=== PATIENT | female | born 1970 | race Caucasian/White ===

== ENCOUNTER 2017-03-28 18:26 | Emergency (ER) | payer OTHER ==
[2017-03-28] MEDS ORDERED: NORMAL SALINE 1000 ML 1,000 ML IV ONE (18:50)
--- NOTE | 2017-03-28 18:50 | ER Document Report ---
ED General - General Stated Complaint: RAPID HEART RATE Time Seen by Provider: 03/28/17 18:39 Notes: Patient is a 46-year-old female with past medical history of Vonnie-Parkinson- White syndrome with a prior history of supraventricular tachycardia who presents after having an episode of supraventricular tachycardia was treated with adenosine prior to arrival. Patient went to urgent care with palpitations , was found to be in SVT, EMS was contacted and an adenosine was administered. The patient states that her only symptom was palpitations and she denies any symptoms of chest pain or shortness of breath. She states that this felt exactly the same as prior episodes of SVT she has had in the past. At some my assessment she denies any ongoing symptoms. She is uncertain what triggered today's episode. It did resolve after single dose of adenosine. 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 She denies any stimulant use today. She does note that she is on been under emotional distress secondary to the of her mother recently. TRAVEL OUTSIDE OF THE [place] IN LAST 30 DAYS: No - Related Data Allergies/Adverse Reactions: No Known Allergies Allergy (Verified 03/28/17 18:53) Past Medical History - General Information source: Patient - Social History Smoking Status: Never Smoker Frequency of alcohol use: None Drug Abuse: None Lives with: Spouse/Significant other Family History: Reviewed & Not Pertinent Review of Systems - Review of Systems Notes: Constitutional: Negative for fever. HENT: Negative for sore throat. Eyes: Negative for visual changes. Cardiovascular: Negative for chest pain. Respiratory: Negative for shortness of breath. Gastrointestinal: Negative for abdominal pain, vomiting or diarrhea. Genitourinary: Negative for dysuria. Musculoskeletal: Negative for back pain. Skin: Negative for rash. Neurological: Negative for headaches, weakness or numbness. 10 point ROS negative except as marked above and in HPI. Physical Exam - Vital signs Vitals: Pulse Ox 98 03/28/17 18:32 Interpretation: Tachycardic Notes: PHYSICAL EXAMINATION: GENERAL: Well-appearing, well-nourished and in no acute distress. HEAD: Atraumatic, normocephalic. EYES: Pupils equal round and reactive to light, extraocular movements intact, sclera anicteric, conjunctiva are normal. ENT: nares patent, oropharynx clear without exudates. Moist mucous membranes. NECK: Normal range of motion, supple without lymphadenopathy LUNGS: Breath sounds clear to auscultation bilaterally and equal. No wheezes rales or rhonchi. HEART: Regular tachycardia without murmurs ABDOMEN: Soft, nontender, normoactive bowel sounds. No guarding, no rebound. No masses appreciated. EXTREMITIES: Normal range of motion, no pitting or edema. No cyanosis. NEUROLOGICAL: No focal neurological deficits. Moves all extremities spontaneously and on command. PSYCH: Normal mood, normal affect. SKIN: Warm, Dry, normal turgor, no rashes or lesions noted. Course - Re-evaluation Re-evalutation: 03/28/17 18:49 Patient presents after having an episode of SVT cardioverted chemically in the field by EMS using adenosine. Patient does have Aqete-Kkkeowrmd-Lhihd syndrome and thankfully did not have any complication as a result of his AV nikhil blocking agent being given. She arrives and continues to have a sinus tachycardia, rates ranging between 128 and 132 bpm at the time of my assessment. She denies any additional symptoms beyond palpitations. No indication for an ischemic workup for a pulmonary embolus workup given her clinical history. She does have one prior episode in the past. Patient admits to very poor self-care the past 1 week has her mother recently . Will begin with IV fluids, continue on continuous telemetry and reassess the patient. 03/28/17 20:52 Patient's heart rate has significantly improved down to 106 bpm. Her heart rate does dramatically rise when any medical provider walks into the room comes down back into the low 100s. EKG does show Lfyyj-Ymyywwpri-Tnqfs syndrome. I have encouraged the patient to follow closely with cardiology. Electrolytes unremarkable. She continues to deny any symptoms at this time. At this time will discharge with return precautions and follow-up recommendations. Verbal discharge instructions given a the bedside and opportunity for questions given. Medication warnings reviewed. Patient is in agreement with this plan and has verbalized understanding of return precautions and the need for primary care follow-up in the next 24-72 hours. - Vital Signs Vital signs: Temp Pulse Resp BP Pulse Ox 98.5 F 12 128/77 H 96 03/28/17 19:07 03/28/17 21:01 03/28/17 21:01 03/28/17 21:01 - Laboratory Result Diagrams: 03/28/17 19:40 - EKG Interpretation by Me Additional EKG results interpreted by me: 03/28/17 20:54 Sinus tachycardia. Rate 132. Vuamo-Byzwljavm-Xrhlx syndrome pattern is present. QTC is 486. Discharge - Discharge Clinical Impression: Hszuw-Cuamubnpm-Jcwhx syndrome, Supraventricular tachycardia Condition: Good Disposition: HOME, SELF-CARE Additional Instructions: Please follow-up with cardiology at your earliest ability. Please return if you develop recurrence of your palpitations, lightheadedness, pass out, develop shortness of breath or chest pain, or of any other symptoms that are worrisome to you. Referrals: CAMERON JOHNSON PA-C [Primary Care Provider] - Follow up as needed JOSHUA COOL MD [ACTIVE STAFF] - Follow up as needed
[2017-03-28] MEDS ORDERED: LORAZEPAM 1 MG TABLET PO ONE (19:27)
[2017-03-28 20:24] LABS: ANION GAP 7 (5-19); BLOOD UREA NITROGEN 10 mg/dL (7-20); CALCIUM 8.8 mg/dL (8.4-10.2); CARBON DIOXIDE 28 mmol/L (22-30); CHLORIDE 107 mmol/L (98-107); GLUCOSE 104 mg/dL (75-110); POTASSIUM 3.7 mmol/L (3.6-5.0); SODIUM 141.6 mmol/L (137-145)
[2017-03-28 21:22] VITALS: BP 128/77
--- NOTE | 2017-03-29 09:41 | EKG REPORT ---
SEVERITY:- ABNORMAL ECG - SINUS TACHYCARDIA NONSPECIFIC INTRAVENTRICULAR CONDUCTION DELAY ST DEPRESSION, CONSIDER ISCHEMIA, LAT LEADS : Confirmed by: Rosalina Mueller 29-Mar-2017 09:40:43
== END 2017-03-28 21:22 | disposition home or self-care (01) ==
LOC: ER 18:26
DX: I45.6 Pre-excitation syndrome (principal); I47.1 Supraventricular tachycardia
CPT/HCPCS: 93005; 99285; 96360; 36415; 84703; 80048; 93010; J7030

== ENCOUNTER → 2017-04-23 | Outpatient (CLI) | payer OTHER ==
--- NOTE | 2017-04-23 16:22 | WOMENS IMAGING REPORT ---
EXAM DESCRIPTION: BILAT SCREENING MAMMO W/CAD COMPLETED DATE/TIME: 04/23/2017 8:23 am REASON FOR STUDY: ROUTINE SCREENING; Z12.31 Z12.31 ENCNTR SCREEN MAMMOGRAM FOR MALIGNANT NEOPLASM O F MARCOS COMPARISON: 2012, 2015 TECHNIQUE: Standard craniocaudal and mediolateral oblique views of each breast recorded using sonarDesigna l acquisition. LIMITATIONS: None. FINDINGS: No masses, calcifications or architectural distortion. No areas of suspicion. Read with the assistance of CAD. .[facility] - R2 Cenova Version 1.3 .[facility] Imaging - R2 Cenova Version 1.3 .[facility] Imaging - R2 Cenova Version 2.4 .[facility] - R2 Cenova Version 2.4 .[facility] - R2 American Sign Language Teacher Version 9.2 IMPRESSION: NORMAL MAMMOGRAM. BIRADS 1. BREAST DENSITY: b. There are scattered areas of fibroglandular density. BIRAD: 1 NEGATIVE RECOMMENDATION: ROUTINE SCREENING COMMENT: The patient has been notified of the results by letter per SA requirements. Additional no tification policies are in place for contacting patient with suspicious or incomplete findings. Quality ID #[id number]: The [employer] recommends an annual screening mammogram for women aged 40 years or over. This facility utilizes a reminder system to ensure that all patients receive reminder letters, and/or direct phone calls for appointments. This includes reminders for routine scr eening mammograms, diagnostic mammograms, or other Breast Imaging Interventions when appropriate. Th is patient will be placed in the appropriate reminder system. The [employer] (ACR) has developed recommendations for screening MRI of the breast s in certain patient populations, to be used in conjunction with mammography. Breast MRI surveillanc e may be appropriate for women with more than 20% lifetime risk of developing breast cancer as deter mined by genetic testing, significant family history of the disease, or history of mantle radiation f or Hodgkins Disease. ACR Practice Guidelines 2008. TECHNICAL DOCUMENTATION: FINDING NUMBER: (1) ASSESSMENT: (1) JOB ID: [id number] [employer]- All Rights Reserved
== END ==
LOC: WI 09:10
PROVIDERS: ATTEND Physician Assistant
DX: Z12.31 Encounter for screening mammogram for malignant neoplasm of breast (principal)
CPT/HCPCS: 77067

== ENCOUNTER 2017-11-07 09:55 | Emergency (ER) | payer OTHER ==
[2017-11-07] MEDS ORDERED: NORMAL SALINE 1000 ML 1,000 ML IV PRN (10:17)
[2017-11-07] MEDS ORDERED: METHYLPREDNISOLONE INJ 125 MG/2 ML SDV IV ONE (10:18)
[2017-11-07] MEDS ORDERED: DIPHENHYDRAMINE HCL 50 MG/ML VIAL IV ONE (10:18)
--- NOTE | 2017-11-07 10:20 | ER Document Report ---
ED Medical Screen (RME) - General Chief Complaint: Allergic Reaction Stated Complaint: POSSIBLE ALLERGIC REACTION Time Seen by Provider: 11/07/17 10:16 Notes: 47 years old female presents today with diffuse urticarial rash throughout the whole body which is erythematous. Started about a few days ago and was treated with Solu-Medrol and tapering dose of prednisone which is day 2 for heart today. But the rash has not improved at all the plaque to be getting worse spreading throughout the whole body including including swelling of the lower lips. Therefore concerned and came to the ED. She was on Macrobid for UTI, the last dose was 1 week ago. A few days ago she was outside in [employer] constitution party. On examination angioedema, urticarial type of rash was noted. Palmar and plantar erythema to0 noted. TRAVEL OUTSIDE OF THE [place] IN LAST 30 DAYS: No - Related Data Allergies/Adverse Reactions: amoxicillin Allergy (Verified 11/07/17 10:13) Past Medical History Renal/ Medical History: Denies: Hx Peritoneal Dialysis Physical Exam - Vital signs Vitals: Temp Pulse Resp BP Pulse Ox 98.2 F 111 H 18 145/87 H 97 11/07/17 09:59 11/07/17 09:59 11/07/17 09:59 11/07/17 09:59 11/07/17 09:59 Course - Vital Signs Vital signs: Temp Pulse Resp BP Pulse Ox 98.2 F 111 H 18 145/87 H 97 11/07/17 09:59 11/07/17 09:59 11/07/17 09:59 11/07/17 09:59 11/07/17 09:59 Doctor's Discharge - Discharge Referrals: CAMERON JOHNSON PA-C [Primary Care Provider] - Follow up as needed
--- NOTE | 2017-11-07 10:32 | ER Document Report ---
ED General - General Chief Complaint: Allergic Reaction Stated Complaint: POSSIBLE ALLERGIC REACTION Time Seen by Provider: 11/07/17 10:16 Notes: Patient is a 47-year-old female presents to the emergency department for chief complaint of hives. The patient states that she first noticed these on Saturday and they have become progressively worse since then. On Saturday this week she did go to an urgent care, and was given IV steroid, discharged on prednisone and Zantac, however her symptoms progressed since then, she did have some resolution of some of her hives, but then they migrated to other areas. They are mainly noted in the ankles, backs of her knees, and other flexor surfaces of her extremities and her neck. Today she did note that her bottom lip was swelling, which prompted her to come to the emergency department, denies feeling any sensation of throat swelling, wheezing, nausea or vomiting. She does not recall any new exposures to medications, the most recent was an antibiotic 10 days ago, and she had no problems at that time. The only thing she can recall is that she used a new dryer sheet for her close, she denies any new foods, or prior allergies to foods. She does have an allergy to amoxicillin , but has not been exposed to that medication. She denies any other chronic medical conditions. TRAVEL OUTSIDE OF THE [place] IN LAST 30 DAYS: No - Related Data Allergies/Adverse Reactions: amoxicillin Allergy (Verified 11/07/17 10:13) Past Medical History - Social History Smoking Status: Never Smoker Frequency of alcohol use: None Drug Abuse: None Family History: Reviewed & Not Pertinent Patient has suicidal ideation: No Patient has homicidal ideation: No - Medical History Notes: Denies chronic medical conditions Renal/ Medical History: Denies: Hx Peritoneal Dialysis Review of Systems - Review of Systems Notes: REVIEW OF SYSTEMS: CONSTITUTIONAL : Denies fever, chills, or sweats. Denies recent illness. EENT: Positive for lip swelling. Denies eye, ear, throat, or mouth pain or symptoms. Denies nasal or sinus congestion. CARDIOVASCULAR: Denies chest pain. RESPIRATORY: Denies cough, cold, or chest congestion. Denies shortness of breath, difficulty breathing, or wheezing. GASTROINTESTINAL: Denies abdominal pain. Denies nausea, vomiting, or diarrhea. Denies constipation. Last BM: GENITOURINARY: Denies difficulty urinating, painful urination, burning, frequency, or blood in urine. FEMALE GENITOURINARY: Denies vaginal bleeding, abnormal or irregular periods. LMP: MUSCULOSKELETAL: Denies neck or back pain or joint pain or swelling. SKIN: Positive for rash and hives HEMATOLOGIC : Denies easy bruising or bleeding. LYMPHATIC: Denies swollen, enlarged glands. NEUROLOGICAL: Denies altered mental status or loss of consciousness. Denies headache. Denies weakness or paralysis or loss of use of either side. Denies problems with gait or speech. Denies sensory or motor loss. PSYCHIATRIC: Denies anxiety or stress or depression. ALL OTHER SYSTEMS REVIEWED AND NEGATIVE. Physical Exam - Vital signs Vitals: Temp Pulse Resp BP Pulse Ox 98.2 F 111 H 18 145/87 H 97 11/07/17 09:59 11/07/17 09:59 11/07/17 09:59 11/07/17 09:59 11/07/17 09:59 - Notes Notes: PHYSICAL EXAMINATION: GENERAL: Well-appearing, well-nourished and in no acute distress. HEAD: Atraumatic, normocephalic. EYES: Pupils equal round and reactive to light, extraocular movements intact, sclera anicteric, conjunctiva are normal. ENT: nares patent, oropharynx clear without exudates. Moist mucous membranes. Uvula midline, nonedematous, tongue is not edematous, there is slight lower lip edema noted. NECK: Normal range of motion, supple without lymphadenopathy LUNGS: Breath sounds clear to auscultation bilaterally and equal. No wheezes rales or rhonchi. HEART: Regular rate and rhythm without murmurs ABDOMEN: Soft, nontender, normoactive bowel sounds. No guarding, no rebound. No masses appreciated. EXTREMITIES: Normal range of motion, no pitting or edema. No cyanosis. NEUROLOGICAL: No focal neurological deficits. Moves all extremities spontaneously and on command. PSYCH: Normal mood, normal affect. SKIN: Noted are multiple areas of urticaria, over the patient's abdomen, neck, ankles, and a large area of erythema and urticaria over the patient's left antecubital fossa, mildly tender to palpation. Otherwise warm, Dry, normal turgor, Course - Re-evaluation Re-evalutation: 11/07/17 10:31 Patient seen and examined, vital signs reviewed. Patient noted to have multiple areas of urticaria, uvula was midline, nonedematous, no wheezing, or respiratory distress, patient be treated with IV corticosteroids, diphenhydramine, and given IM epinephrine, will monitor in the emergency department for improvement, if patient does not have any worsening lip swelling , or tongue swelling, patient will be discharged home. Patient agreeable to this plan of care. Patient's blood work was reviewed, demonstrated mild leukocytosis, patient has been on corticosteroids, and likely as a result, no evidence of infection at this time. 11/07/17 12:51 Patient reevaluated, was much improved, lip swelling decreased, her erythema and urticaria are much improved, this point I feel comfortable discharging the patient to home, after significant observation time, she is advised to continue taking Benadryl 50 mg 3 times a day, I will prescribe her with a different prescription for prednisone over a long taper, she is also advised to continue taking Zantac twice daily, she is given reasons to return to the emergency department including but not limited to shortness of breath, chest pain, wheezing, worsening rash, or sloughing of the skin of the palms or soles or any oral lesions. Patient agreeable to plan of care. - Vital Signs Vital signs: Temp Pulse Resp BP Pulse Ox 98.1 F 111 H 10 L 134/58 H 97 11/07/17 13:23 11/07/17 09:59 11/07/17 13:23 11/07/17 13:23 11/07/17 13:23 - Laboratory Result Diagrams: 11/07/17 10:45 11/07/17 10:45 Laboratory results interpreted by me: 11/07/17 11/07/17 10:45 10:45 WBC 15.3 H Absolute Neutrophils 11.9 H Potassium 3.2 L C-Reactive Protein 24.7 H Critical Care Note - Critical Care Note Total time excluding time spent on procedures (mins): 38 Comments: Critical care time 30 minutes exclusive from separate billable procedures for the patient presenting with angioedema, requiring IM epinephrine, and close cardiac monitoring, with complex medical decision making, and high potential for clinical deterioration, from a respiratory, and cardiovascular standpoint. Discharge - Discharge Clinical Impression: Urticaria Angioedema Qualifiers: Encounter type: initial encounter Qualified Code(s): T78.3XXA - Angioneurotic edema, initial encounter Condition: Good Disposition: HOME, SELF-CARE Instructions: Acute Allergic Reaction ([facility]) Additional Instructions: Please take Benadryl 50 mg 3 times daily, take the prednisone (steroid) as instructed, continue to take the Zantac as prescribed twice daily for at least 7 more days, please monitor for difficulty breathing, wheezing, chest pain or abdominal pain, and also look for blistering on your hands or feet, if you develop these symptoms please return to the emergency department immediately. Prescriptions: Prednisone See Protocol PO DAILY #60 tablet Prednisone 10 mg PO DAILY #60 tablet Referrals: CAMERON JOHNSON PA-C [Primary Care Provider] - Follow up in 3-5 days
[2017-11-07] MEDS ORDERED: EPINEPHRINE INJ/PF 1 MG/1 ML AMPULE IM ONE (10:43)
[2017-11-07 10:55] LABS: ABSOLUTE EOSINOPHILS # (AUTO) 0.1 10^3/uL (0.0-0.6); ABSOLUTE LYMPHOCYTES (AUTO) 2.2 10^3/uL (0.5-4.7); ABSOLUTE MONOCYTES (AUTO) 1.1 10^3/uL (0.1-1.4); ABSOLUTE NEUT (AUTO) 11.9 10^3/uL (1.7-8.2); BASOPHILS % (AUTO) 0.2 % (0-2); EOSINOPHILS % (AUTO) 0.6 % (0-6); HEMATOCRIT 41.3 % (36.0-47.0); HEMOGLOBIN 13.8 g/dL (12.0-15.5); LYMPHOCYTES % (AUTO) 14.7 % (13-45); MEAN CORPUSCULAR HEMOGLOBIN 27.9 pg (27.0-33.4); MEAN CORPUSCULAR HGB CONC 33.5 g/dL (32.0-36.0); MEAN CORPUSCULAR VOLUME 83 fl (80-97); MONOCYTES % (AUTO) 7.2 % (3-13); PLATELET COUNT 363 10^3/uL (150-450); RED BLOOD COUNT 4.95 10^6/uL (3.72-5.28); SEGMENTED NEUTROPHILS % (AUTO) 77.3 % (42-78); TOTAL CELLS COUNTED % (AUTO) 100 %; WHITE BLOOD COUNT 15.3 10^3/uL (4.0-10.5)
[2017-11-07 11:22] LABS: ALANINE AMINOTRANSFERASE 28 U/L (9-52); ALBUMIN 3.9 g/dL (3.5-5.0); ALKALINE PHOSPHATASE 98 U/L (38-126); ANION GAP 13 (5-19); ASPARTATE AMINO TRANSFERASE 22 U/L (14-36); BILIRUBIN,DIRECT 0.3 mg/dL (0.0-0.4); BILIRUBIN,TOTAL 0.7 mg/dL (0.2-1.3); BLOOD UREA NITROGEN 13 mg/dL (7-20); C-REACTIVE PROTEIN 24.7 mg/L (<10.0); CALCIUM 9.4 mg/dL (8.4-10.2); CARBON DIOXIDE 25 mmol/L (22-30); CHLORIDE 104 mmol/L (98-107); GLUCOSE 91 mg/dL (75-110); POTASSIUM 3.2 mmol/L (3.6-5.0); SODIUM 141.6 mmol/L (137-145); TOTAL PROTEIN 6.9 g/dL (6.3-8.2)
[2017-11-07 11:38] LABS: ERYTHROCYTE SEDIMENTATION RATE 14 mm/hr (0-20)
[2017-11-07] MEDS ORDERED: POTASSIUM CHLORIDE 10 MEQ CAPSULE.ER PO ONE (11:59)
[2017-11-07 13:30] VITALS: BP 134/58
== END 2017-11-07 13:35 | disposition home or self-care (01) ==
LOC: ER 09:55
DX: T78.3XXA Angioneurotic edema, initial encounter (principal); D72.829 Elevated white blood cell count, unspecified; Z88.0 Allergy status to penicillin
CPT/HCPCS: 99291; 96372; 96361; 96374; 96375; 36415; 85025; 85652; 86140; 80053; J1200; J0171; J2930; J7030

== ENCOUNTER → 2018-06-20 | Outpatient (CLI) | payer OTHER ==
--- NOTE | 2018-06-20 10:22 | WOMENS IMAGING REPORT ---
EXAM DESCRIPTION: BILAT SCREENING MAMMO W/CAD COMPLETED DATE/TIME: 06/20/2018 7:50 am REASON FOR STUDY: Z12.31 ROUTINE BILATERAL SCREENING Z12.31 ENCNTR SCREEN MAMMOGRAM FOR MALIGNANT N EOPLASM OF MARCOS COMPARISON: 04/23/2017 and 03/01/2016. TECHNIQUE: Standard craniocaudal and mediolateral oblique views of each breast recorded using digita l acquisition. LIMITATIONS: None. FINDINGS: No masses, calcifications or architectural distortion. No areas of suspicion. Read with the assistance of CAD. .[facility] - R2 Cenova Version 1.3 .[facility] Imaging - R2 Cenova Version 2.1 .[facility] - R2 Cenova Version 2.4 .[facility] - R2 Cenova Version 2.4 .[facility] - R2 Ccnp Version 9.2 IMPRESSION: NORMAL MAMMOGRAM. BIRADS 1. BREAST DENSITY: b. There are scattered areas of fibroglandular density. BIRAD: 1 NEGATIVE RECOMMENDATION: ROUTINE SCREENING COMMENT: The patient has been notified of the results by letter per MQSA requirements. Additional no tification policies are in place for contacting patient with suspicious or incomplete findings. Quality ID #225: The [employer] recommends an annual screening mammogram for women aged 40 years or over. This facility utilizes a reminder system to ensure that all patients receive reminder letters, and/or direct phone calls for appointments. This includes reminders for routine scr eening mammograms, diagnostic mammograms, or other Breast Imaging Interventions when appropriate. Th is patient will be placed in the appropriate reminder system. The [employer] [employer] (ACR) has developed recommendations for screening MRI of the breast s in certain patient populations, to be used in conjunction with mammography. Breast MRI surveillanc e may be appropriate for women with more than 20% lifetime risk of developing breast cancer as deter mined by genetic testing, significant family history of the disease, or history of mantle radiation f or Hodgkins Disease. ACR Practice Guidelines 2008. TECHNICAL DOCUMENTATION: FINDING NUMBER: (1) ASSESSMENT: (1) JOB ID: [id number] [employer]- All Rights Reserved Reading location - IP/workstation name: [email or web address]
== END ==
LOC: WI 07:50
PROVIDERS: ATTEND Physician Assistant
DX: Z12.31 Encounter for screening mammogram for malignant neoplasm of breast (principal)
CPT/HCPCS: 77067

== ENCOUNTER → 2020-04-07 | Outpatient (CLI) | payer OTHER ==
--- NOTE | 2020-04-07 12:38 | WOMENS IMAGING REPORT ---
EXAM DESCRIPTION: BILAT SCREENING MAMMO W/CAD IMAGES COMPLETED DATE/TIME: 04/07/2020 7:50 am REASON FOR STUDY: ROUTINE BILATERAL SCREENING;Z12.31Z12.31 ENCNTR SCREEN MAMMOGRAM FOR MALIGNANT NE OPLASM OF MARCOS COMPARISON: 03/01/2016, 04/23/2017, 06/20/2018 EXAM PARAMETERS: Standard craniocaudal and mediolateral oblique views of each breast recorded using digital acquisition. Read with the assistance of CAD. .[facility] [employer] Version 9.2 LIMITATIONS: None. FINDINGS: RIGHT BREAST MASSES: No suspicious masses. CALCIFICATIONS: No new or suspicious calcifications. ARCHITECTURAL DISTORTION: None. ASYMMETRY: There is a tiny circumscribed asymmetric density within the posterior 1/3 of the breast pa renchyma just above the level of the nipple on the MLO view, possibly on the basis of a vascular loop . This is not retrospectively present on comparison imaging. OTHER: No other significant findings. LEFT BREAST MASSES: No suspicious masses. CALCIFICATIONS: No new or suspicious calcifications. ARCHITECTURAL DISTORTION: None. ASYMMETRY: None noted. OTHER: No other significant findings. IMPRESSION: Circumscribed asymmetric density within the right breast. 0 Incomplete: Needs Additional Imaging Evaluation and/or prior Mammograms for Comparison. BREAST DENSITY: b. There are scattered areas of fibroglandular density. BIRAD: ASSESSMENT: 0 Incomplete: Needs Additional Imaging Evaluation and/or prior Mammograms for C omparison. RECOMMENDATION: RECOMMENDED FOLLOW-UP: Recommend spot compression in the MLO and lateral exaggerate d CC projections. ADDITIONAL RECOMMENDATION- additional sonographic evaluation at the interpreting radiologist's discre tion. The patient will be contacted for additional imaging. COMMENT: The patient has been notified of the results by letter per MQSA requirements. Additional no tification policies are in place for contacting patient with suspicious or incomplete findings. Quality ID #225: The [employer] recommends an annual screening mammogram for women aged 40 years or over. This facility utilizes a reminder system to ensure that all patients receive reminder letters, and/or direct phone calls for appointments. This includes reminders for routine scr eening mammograms, diagnostic mammograms, or other Breast Imaging Interventions when appropriate. Th is patient will be placed in the appropriate reminder system. TECHNICAL DOCUMENTATION: FINDING NUMBER: (1) ASSESSMENT: (1) JOB ID: [id number] [employer]- All Rights Reserved Reading location - IP/workstation name: [email or web address]
== END ==
LOC: WI 07:48
PROVIDERS: ATTEND Physician Assistant
DX: Z12.31 Encounter for screening mammogram for malignant neoplasm of breast (principal)
CPT/HCPCS: 77067